=== PATIENT | female | born 1975 | race Caucasian/White ===

== ENCOUNTER 2017-10-15 20:13 | Emergency (ER) | payer OTHER ==
[~2017-10-15] VITALS: Ht 167.6 cm; Wt 63.3 kg
[~2017-10-15 20:13] MED LIST: CLEOCIN300 MG PO; NO HOME; TYLENOL WITH C1 EACH PO
[2017-10-15 20:56] LABS: HEMATOCRIT 43.4 % (36.0-46.0); HEMOGLOBIN 15.1 G/DL (11.9-15.5); MCH 30.6 PG (29.0-34.0); MCHC 34.8 G/DL (30.0-36.0); PLATELET COUNT 427 K/uL (156-360); RBC DIS.WIDTH-CV 11.5 % (11.8-14.6); RBC DIS.WIDTH-SD 37.2 % (39-53); RED BLOOD COUNT 4.93 M/uL (3.80-5.20); WHITE BLOOD COUNT 9.8 K/uL (4.1-10.2)
[2017-10-15 21:10] LABS: CHLORIDE 103 mEq/L (99-109); POTASSIUM 3.9 mEq/L (3.7-5.4); SODIUM 141 mEq/L (136-147)
[2017-10-15 21:11] LABS: GLUCOSE 100 mg/dL (70-99)
[2017-10-15 21:15] LABS: CREATININE 0.7 mg/dL (0.6-1.3); GFR ESTIMATE (CALCULATED) > 59 mL/min/
[2017-10-15 21:16] LABS: UREA NITROGEN (BUN) 12 mg/dL (9-23)
[2017-10-15 23:06] VITALS: BP 122/90
== END 2017-10-15 23:07 | disposition left against medical advice (07) ==
LOC: EXP 20:13 → EME 20:13 → EXP 23:07
PROVIDERS: Emergency Medicine Emergency Medical Services
DX: R29.898 Other symptoms and signs involving the musculoskeletal system (principal); R51 Headache; R94.31 Abnormal electrocardiogram [ECG] [EKG]; Z87.891 Personal history of nicotine dependence; Z82.49 Family history of ischemic heart disease and other diseases of the circulatory system; Z98.51 Tubal ligation status; Z98.890 Other specified postprocedural states; Z88.5 Allergy status to narcotic agent; Z88.1 Allergy status to other antibiotic agents
CPT/HCPCS: 70450; 71046; 80048; 85027; 93005; 99281; 99285